=== PATIENT | female | born 1940 | race Native Hawaiian/Other Pacific Islander ===

== ENCOUNTER 2023-03-13 16:10 | Emergency (ER) | payer OTHER ==
[~2023-03-13] VITALS: Ht 157.5 cm; Wt 66.2 kg
[2023-03-13 16:18] VITALS: BP 108/36; TEMP 98.5
[2023-03-13 16:52] LABS: PLATELET COUNT 210 K/uL (152-353)
== END 2023-03-13 17:52 | disposition home or self-care (01) ==
LOC: ED 16:10
PROVIDERS: Family Medicine
DX: I87.8 Other specified disorders of veins (principal); M79.605 Pain in left leg; R60.9 Edema, unspecified; I87.2 Venous insufficiency (chronic) (peripheral); I10 Essential (primary) hypertension; I50.9 Heart failure, unspecified
CPT/HCPCS: 80053; 81002; 83880; 85027; 85379; 99283